=== PATIENT | female | born 1955 | race Caucasian/White ===

== ENCOUNTER 2023-09-24 13:04 | Inpatient (IN) ==
[2023-09-24] MEDS ORDERED: Lactated Ringers 1000 ml BAG 1,000 ML IV ONE (13:40)
[2023-09-24] MEDS ORDERED: Morphine 4 MG/ML VIAL (1 ml) IV ONE ×2 (13:40→19:41)
[2023-09-24] MEDS ORDERED: Ondansetron 4 mg VIAL 2 MG/ML 2 ml VIAL IV ONE (13:40)
[2023-09-24 14:26] LABS: ABS Lymphocytes 0.3 10^3/uL (1.0-4.8); ABS Monocytes 0.5 10^3/uL (0.0-0.9); Hemoglobin 8.8 g/dL (11.5-14.3); Lymphocyte % 2.6 %; Mean Corpuscular Hemoglobin 27.1 pg (27-33); Mean Corpuscular Hgb Conc 33.7 g/dL (31-36); Mean Corpuscular Volume 80.2 fL (80-97); Mean Platelet Volume 9.2 fL (7.5-11.2); Platelet Count 333 10^3/uL (150-450); Red Blood Count 3.24 10^6/uL (3.63-4.92); White Blood Count 12.8 10^3/uL (3.8-11.8)
[2023-09-24 14:52] LABS: ALT 16 U/L (7-52); AST 16 U/L (13-39); Albumin 2.9 g/dL (3.2-5.2); Albumin/Globulin Ratio 1.1 (1-3); Alkaline Phosphatase 154 U/L (35-149); Anion Gap 10 mmol/L (2-16); Blood Urea Nitrogen 27 mg/dL (6-24); CO2 Carbon Dioxide 25 mmol/L (22-32); Calcium 8.7 mg/dL (8.6-10.3); Chloride 95 mmol/L (101-111); Creatinine, Serum 1.05 mg/dL (0.51-0.95); Globulin 2.6 g/dL (2-4); Glucose 119 mg/dL (70-100); Lipase < 10 U/L (11.0-82.0); Potassium 4.4 mmol/L (3.5-5.0); Sodium 130 mmol/L (135-145); Total Bilirubin 0.8 mg/dL (0.2-1.0); Total Protein 5.5 g/dL (6.4-8.9)
[2023-09-24] MEDS ORDERED: Iodixanol (CONTRAST) 320 MG/ML 100 ML SDV IV ONE (15:21)
[2023-09-24 15:52] LABS: Urine Appearance Cloudy; Urine Bilirubin Negative (Negative); Urine Blood 1+ (Negative); Urine Color Amber; Urine Glucose Negative (Negative); Urine Ketones 1+ (Negative); Urine Nitrite Negative (Negative); Urine Protein 2+(100 mg/dL) (Negative); Urine Specific Gravity 1.026 (1.002-1.030); Urine Urobilinogen Positive (Negative)
[2023-09-24 16:23] LABS: Urine Bacteria Absent (Absent); Urine Granular Casts Present (Absent); Urine Red Blood Cell 1+(3-5/hpf) (Absent); Urine Squamous Epithelial Cell Present (Absent); Urine White Blood Cell 2+(11-20/hpf) (Absent)
[2023-09-24 20:27] LABS: C Reactive Protein 194.29 mg/L (<8.01)
[2023-09-24] MEDS ORDERED: Ondansetron 4 mg VIAL 2 MG/ML 2 ml VIAL IV PRN (23:37)
[2023-09-25] MEDS ORDERED: cefTRIAXone 2 gm/50 mL D5W 2 GM/50 ML BAG IV SCH (00:15)
[2023-09-25] MEDS: Enoxaparin 40 MG/0.4 ML SYR SUBCUT SCH ×2 (01:39→21:29)
[2023-09-25 02:30] LABS: Body Fluid Appearance Cloudy; Body Fluid Color Yellow; Body Fluid Source Peritonial Fluid
[2023-09-25 02:46] LABS: Body Fluid Total Nucleated 2066 /mcL
[2023-09-25] MEDS: Azithromycin 500 mg/250 ml NS 500 MG/250 ML BAG IVPB SCH (03:07)
[2023-09-25 05:26] LABS: Body Fluid Mono 31 %; Body Fluid Other Cells 18; Body Fluid Total Cells Counted 200
[2023-09-25 06:01] LABS: ABS Lymphocytes 0.5 10^3/uL (1.0-4.8); ABS Monocytes 0.5 10^3/uL (0.0-0.9); Eosinophil % 0.5 %; Hematocrit 23.3 % (35-45); Hemoglobin 7.9 g/dL (11.5-14.3); Lymphocyte % 6.2 %; Mean Corpuscular Hemoglobin 27.2 pg (27-33); Mean Corpuscular Volume 79.9 fL (80-97); Mean Platelet Volume 9.2 fL (7.5-11.2); Platelet Count 270 10^3/uL (150-450); Red Blood Count 2.92 10^6/uL (3.63-4.92); Red Cell Distribution Width 14.1 % (12-17); White Blood Count 8.1 10^3/uL (3.8-11.8)
[2023-09-25 06:19] LABS: Albumin 2.5 g/dL (3.2-5.2); Albumin/Globulin Ratio 1.1 (1-3); Creatinine, Serum 1.05 mg/dL (0.51-0.95); Globulin 2.3 g/dL (2-4); Magnesium 1.8 mg/dL (1.9-2.7); Potassium 4.1 mmol/L (3.5-5.0); Total Bilirubin 0.6 mg/dL (0.2-1.0); Total Protein 4.8 g/dL (6.4-8.9)
[2023-09-26] MEDS: cefTRIAXone 2 gm/50 mL D5W 2 GM/50 ML BAG IV SCH (01:07)
[2023-09-26] MEDS: Azithromycin 500 mg/250 ml NS 500 MG/250 ML BAG IVPB SCH (02:28)
[2023-09-26 05:27] LABS: Hematocrit 22.7 % (35-45); Hemoglobin 7.7 g/dL (11.5-14.3); Mean Corpuscular Hemoglobin 27.1 pg (27-33); Mean Corpuscular Hgb Conc 33.8 g/dL (31-36); Mean Platelet Volume 9.3 fL (7.5-11.2); Platelet Count 262 10^3/uL (150-450); Red Blood Count 2.83 10^6/uL (3.63-4.92); Red Cell Distribution Width 14.3 % (12-17); White Blood Count 6.6 10^3/uL (3.8-11.8)
[2023-09-26 05:49] LABS: Creatinine, Serum 1.07 mg/dL (0.51-0.95); Potassium 3.9 mmol/L (3.5-5.0); eGFR CKD-EPI 57.6 (>60)
[2023-09-26] MEDS ORDERED: PALONOSETRON HCL 0.05 MG/ML (0.25 MG) SYRINGE (0.05 MG/ML) IV ONE (08:45)
[2023-09-26] MEDS ORDERED: Dexamethasone IV 4 MG/ML VIAL 1 ml VIAL IV SLOW PU ONE (08:45)
[2023-09-26] MEDS ORDERED: APREPITANT 130 MG in Premix IV 0 ML IV ONE (08:45)
[2023-09-26] MEDS ORDERED: GEMCITABINE IVPB ONE (09:15)
[2023-09-26] MEDS ORDERED: NS 0.9% IVPB ONE ×2 (09:15→09:45)
[2023-09-26] MEDS ORDERED: CARBOPLATIN IVPB ONE (09:45)
[2023-09-26] MEDS: Enoxaparin 40 MG/0.4 ML SYR SUBCUT SCH (21:09)
[2023-09-27] MEDS: cefTRIAXone 2 gm/50 mL D5W 2 GM/50 ML BAG IV SCH (00:48)
[2023-09-27] MEDS: Azithromycin 500 mg/250 ml NS 500 MG/250 ML BAG IVPB SCH (01:30)
[2023-09-27 04:54] LABS: Creatinine, Serum 1.08 mg/dL (0.51-0.95); Potassium 4.1 mmol/L (3.5-5.0)
[2023-09-27 05:42] LABS: Hematocrit 21.4 % (35-45); Hemoglobin 7.3 g/dL (11.5-14.3); Mean Corpuscular Hgb Conc 34.1 g/dL (31-36); Mean Corpuscular Volume 79.1 fL (80-97); Mean Platelet Volume 10.3 fL (7.5-11.2); Platelet Count 268 10^3/uL (150-450); Red Blood Count 2.71 10^6/uL (3.63-4.92); Red Cell Distribution Width 14.2 % (12-17); White Blood Count 7.7 10^3/uL (3.8-11.8)
[2023-09-27 11:16] LABS: BF PH 7.6
[2023-09-27 11:17] LABS: Fluid Type, Protein, Total PERITONEAL FLUID; Glucose, BF 69 mg/dL; Total Protein, BF 4.1 g/dL
[2023-09-27] MEDS: Enoxaparin 40 MG/0.4 ML SYR SUBCUT SCH (21:42)
[2023-09-28] MEDS: cefTRIAXone 2 gm/50 mL D5W 2 GM/50 ML BAG IV SCH (01:40)
[2023-09-28 06:34] LABS: Calcium 8.2 mg/dL (8.6-10.3); Creatinine, Serum 1.04 mg/dL (0.51-0.95); Potassium 4.2 mmol/L (3.5-5.0); eGFR CKD-EPI 59.6 (>60)
[2023-09-28 07:15] LABS: Hematocrit 22.3 % (35-45); Hemoglobin 7.7 g/dL (11.5-14.3); Mean Corpuscular Hemoglobin 27.3 pg (27-33); Mean Corpuscular Hgb Conc 34.5 g/dL (31-36); Mean Corpuscular Volume 79.3 fL (80-97); Mean Platelet Volume 10.2 fL (7.5-11.2); Platelet Count 313 10^3/uL (150-450); Red Blood Count 2.81 10^6/uL (3.63-4.92); Red Cell Distribution Width 14.4 % (12-17); White Blood Count 6.3 10^3/uL (3.8-11.8)
[2023-09-28 14:35] VITALS: BP 112/74
== END 2023-09-28 16:01 | disposition home or self-care (01) | DRG 371 ==
LOC: ED 13:04 → EDHOLD 13:04 → SUATTDRO 23:37 → MED 09-25 13:02
PROVIDERS: ADMIT Internal Medicine; ATTEND Internal Medicine

== ENCOUNTER 2023-10-03 07:48 | Inpatient (IN) ==
[~2023-10-03 07:48] MED LIST: BEVACIZUMAB AWWB IVPB SCH; GEMCITABINE IVPB SCH; NS 0.9% IVPB SCH; [UNRECOGNIZED DRUG - OTHER] IVPB SCH
[2023-10-03 08:51] LABS: ABS Lymphocytes 0.3 10^3/uL (1.0-4.8); ABS Monocytes 0.1 10^3/uL (0.0-0.9); ABS Neutrophils 3.3 10^3/uL (1.5-7.6); Eosinophil % 0.1 %; Hematocrit 23.1 % (35-45); Hemoglobin 7.8 g/dL (11.5-14.3); Lymphocyte % 7.8 %; Mean Corpuscular Hemoglobin 26.8 pg (27-33); Mean Corpuscular Hgb Conc 33.8 g/dL (31-36); Mean Corpuscular Volume 79.2 fL (80-97); Mean Platelet Volume 9.3 fL (7.5-11.2); Nucleated Red Blood Cells % 0.1 %/100WBC (0.0-0.8); Platelet Count 197 10^3/uL (150-450); Red Blood Count 2.91 10^6/uL (3.63-4.92); Red Cell Distribution Width 14.5 % (12-17); White Blood Count 3.7 10^3/uL (3.8-11.8)
[2023-10-03 09:15] LABS: Albumin 2.9 g/dL (3.2-5.2); Albumin/Globulin Ratio 1.1 (1-3); Calcium 8.4 mg/dL (8.6-10.3); Creatinine, Serum 0.82 mg/dL (0.51-0.95); Globulin 2.7 g/dL (2-4); Magnesium 1.7 mg/dL (1.9-2.7); Potassium 3.3 mmol/L (3.5-5.0); Total Bilirubin 1.2 mg/dL (0.2-1.0); Total Protein 5.6 g/dL (6.4-8.9); eGFR CKD-EPI 79.3 (>60)
[2023-10-03] MEDS ORDERED: NS 0.9% w/ 20 Meq KCL 1000 ml 1,000 ML ONE (09:47)
[2023-10-03] MEDS ORDERED: Magnesium Sulfate 2 gm BAG 2 GM/50 ML BAG ONE (09:47)
[2023-10-03 10:11] LABS: C Reactive Protein 235.12 mg/L (<8.01)
[2023-10-03] MEDS ORDERED: Ondansetron 4 mg VIAL 2 MG/ML 2 ml VIAL ONE (10:59)
[2023-10-03 13:11] LABS: Erythrocyte Sed Rate > 120 mm/Hr (0-29)
[2023-10-03] MEDS: Enoxaparin 40 MG/0.4 ML SYR SUBCUT SCH (18:56)
[2023-10-04 06:35] LABS: ABS Lymphocytes 0.3 10^3/uL (1.0-4.8); ABS Monocytes 0.1 10^3/uL (0.0-0.9); ABS Neutrophils 1.3 10^3/uL (1.5-7.6); Eosinophil % 0.3 %; Hematocrit 19.7 % (35-45); Hemoglobin 6.7 g/dL (11.5-14.3); Lymphocyte % 17.4 %; Mean Corpuscular Hgb Conc 34.2 g/dL (31-36); Mean Corpuscular Volume 78.8 fL (80-97); Mean Platelet Volume 9.2 fL (7.5-11.2); Nucleated Red Blood Cells % 0.2 %/100WBC (0.0-0.8); Platelet Count 129 10^3/uL (150-450); Red Blood Count 2.49 10^6/uL (3.63-4.92); Red Cell Distribution Width 14.2 % (12-17); White Blood Count 1.7 10^3/uL (3.8-11.8)
[2023-10-04 06:51] LABS: Albumin 2.7 g/dL (3.2-5.2); Calcium 8.2 mg/dL (8.6-10.3); Creatinine, Serum 0.91 mg/dL (0.51-0.95); Globulin 2.6 g/dL (2-4); Magnesium 2.1 mg/dL (1.9-2.7); Potassium 3.5 mmol/L (3.5-5.0); Total Bilirubin 0.7 mg/dL (0.2-1.0); Total Protein 5.3 g/dL (6.4-8.9)
[2023-10-04] MEDS: Cholecalciferol (VIT D3) 1,000 unit TAB PO SCH (10:00)
[2023-10-04] MEDS: Nystatin SUSPENSION 100,000 UNITS/ML UDC PO SCH ×4 (10:01→20:29)
[2023-10-04] MEDS ORDERED: Alteplase (CATHFLO) 2 MG VIAL IV ONE (16:13)
[2023-10-04] MEDS: Enoxaparin 40 MG/0.4 ML SYR SUBCUT SCH (17:46)
[2023-10-04 23:58] LABS: Hematocrit 21.8 % (35-45); Hemoglobin 7.5 g/dL (11.5-14.3); Mean Corpuscular Hemoglobin 27.6 pg (27-33); Mean Corpuscular Hgb Conc 34.5 g/dL (31-36); Red Blood Count 2.72 10^6/uL (3.63-4.92); Red Cell Distribution Width 15.1 % (12-17); White Blood Count 1.3 10^3/uL (3.8-11.8)
[2023-10-05 00:41] LABS: Mean Platelet Volume 9.1 fL (7.5-11.2); Platelet Count 98 10^3/uL (150-450)
[2023-10-05 00:48] LABS: ABS Lymphocytes 0.3 10^3/uL (1.0-4.8); ABS Monocytes 0.1 10^3/uL (0.0-0.9); ABS Neutrophils 0.9 10^3/uL (1.5-7.6); Eosinophil % 0.3 %; Nucleated Red Blood Cells % 0.3 %/100WBC (0.0-0.8); RBC Morphology Normal (Normal)
[2023-10-05 06:12] LABS: Calcium 8.2 mg/dL (8.6-10.3); Creatinine, Serum 0.87 mg/dL (0.51-0.95); Potassium 2.9 mmol/L (3.5-5.0); eGFR CKD-EPI 73.9 (>60)
[2023-10-05 06:22] LABS: ABS Lymphocytes 0.4 10^3/uL (1.0-4.8); ABS Monocytes 0.1 10^3/uL (0.0-0.9); ABS Neutrophils 0.8 10^3/uL (1.5-7.6); Eosinophil % 0.5 %; Hematocrit 22.5 % (35-45); Hemoglobin 7.7 g/dL (11.5-14.3); Lymphocyte % 26.9 %; Mean Corpuscular Hemoglobin 27.2 pg (27-33); Mean Corpuscular Hgb Conc 34.1 g/dL (31-36); Mean Corpuscular Volume 79.7 fL (80-97); Mean Platelet Volume 9.2 fL (7.5-11.2); Nucleated Red Blood Cells % 0.2 %/100WBC (0.0-0.8); Platelet Count 94 10^3/uL (150-450); Red Blood Count 2.82 10^6/uL (3.63-4.92); Red Cell Distribution Width 15.3 % (12-17); White Blood Count 1.3 10^3/uL (3.8-11.8)
[2023-10-05] MEDS: Cholecalciferol (VIT D3) 1,000 unit TAB PO SCH (08:22)
[2023-10-05] MEDS: Potassium EFFERVES 25 meq TAB PO ONE ×2 (08:23→08:35)
[2023-10-05] MEDS: Nystatin SUSPENSION 100,000 UNITS/ML UDC PO SCH ×4 (08:25→20:38)
[2023-10-05] MEDS ORDERED: Potassium Chlor 20 meq TAB.ER PO ONE ×2 (08:41→13:00)
[2023-10-05] MEDS: KCL 20 MEQ/100 ML IVPREMIX 20 MEQ/100 ML BAG IV SCH ×2 (10:51→13:13)
[2023-10-05] MEDS ORDERED: Filgrastim* 480 MCG VIAL (AUTOSUB = ZARXIO*) SUBCUT ONE (11:59)
[2023-10-05] MEDS ORDERED: Potassium EFFERVES 25 meq TAB PO ONE (13:00)
[2023-10-05] MEDS: Lidocaine PATCH 5% PATCH TRANSDERM SCH (15:45)
[2023-10-05] MEDS ORDERED: KCL 20 MEQ/100 ML IVPREMIX 20 MEQ/100 ML BAG IV ONE (16:36)
[2023-10-05] MEDS: Enoxaparin 40 MG/0.4 ML SYR SUBCUT SCH (17:16)
[2023-10-06] MEDS: Cholecalciferol (VIT D3) 1,000 unit TAB PO SCH (09:08)
[2023-10-06] MEDS: Nystatin SUSPENSION 100,000 UNITS/ML UDC PO SCH ×4 (09:09→19:45)
[2023-10-06] MEDS: Lidocaine PATCH 5% PATCH TRANSDERM SCH ×2 (09:35→19:40)
[2023-10-06 09:49] LABS: Hematocrit 28.4 % (35-45); Hemoglobin 9.8 g/dL (11.5-14.3); Mean Corpuscular Hemoglobin 28.3 pg (27-33); Mean Corpuscular Hgb Conc 34.4 g/dL (31-36); Mean Corpuscular Volume 82.3 fL (80-97); Mean Platelet Volume 9.2 fL (7.5-11.2); Platelet Count 67 10^3/uL (150-450); Red Blood Count 3.46 10^6/uL (3.63-4.92); White Blood Count 1.9 10^3/uL (3.8-11.8)
[2023-10-06 09:52] LABS: Calcium 8.2 mg/dL (8.6-10.3); Creatinine, Serum 0.82 mg/dL (0.51-0.95); Magnesium 1.8 mg/dL (1.9-2.7); Potassium 3.4 mmol/L (3.5-5.0); eGFR CKD-EPI 79.3 (>60)
[2023-10-06 10:14] LABS: ABS Lymphocytes 0.4 10^3/uL (1.0-4.8); ABS Monocytes 0.2 10^3/uL (0.0-0.9); ABS Neutrophils 1.3 10^3/uL (1.5-7.6); ABS Nucleated RBC 0.01 10^3/ul; Eosinophil % 0.4 %; Lymphocyte % 19.2 %; Nucleated Red Blood Cells % 0.4 %/100WBC (0.0-0.8)
[2023-10-06] MEDS ORDERED: Magnesium Sulfate 2 gm BAG 2 GM/50 ML BAG IVPB ONE (10:46)
[2023-10-06] MEDS ORDERED: Potassium Chlor 20 meq TAB.ER PO ONE (10:46)
[2023-10-06 14:07] LABS: Urine Appearance Cloudy; Urine Bilirubin Negative (Negative); Urine Blood 2+ (Negative); Urine Color Amber; Urine Glucose Negative (Negative); Urine Ketones Negative (Negative); Urine Nitrite Negative (Negative); Urine Protein 2+(100 mg/dL) (Negative); Urine Specific Gravity 1.027 (1.002-1.030); Urine Urobilinogen Negative (Negative)
[2023-10-06 14:36] LABS: Urine Bacteria Absent (Absent); Urine Red Blood Cell 3+(>10/hpf) (Absent); Urine Squamous Epithelial Cell Present (Absent); Urine White Blood Cell 2+(11-20/hpf) (Absent)
[2023-10-06] MEDS: Enoxaparin 40 MG/0.4 ML SYR SUBCUT SCH (17:07)
[2023-10-07] MEDS: Nystatin SUSPENSION 100,000 UNITS/ML UDC PO SCH ×4 (07:37→21:59)
[2023-10-07 07:40] LABS: Hematocrit 26.7 % (35-45); Mean Corpuscular Hemoglobin 28.3 pg (27-33); Mean Corpuscular Hgb Conc 33.9 g/dL (31-36); Mean Corpuscular Volume 83.5 fL (80-97); Mean Platelet Volume 9.6 fL (7.5-11.2); Platelet Count 47 10^3/uL (150-450); Red Blood Count 3.19 10^6/uL (3.63-4.92); Red Cell Distribution Width 17.6 % (12-17); White Blood Count 3.3 10^3/uL (3.8-11.8)
[2023-10-07 07:48] LABS: Calcium 7.8 mg/dL (8.6-10.3); Creatinine, Serum 0.78 mg/dL (0.51-0.95); Magnesium 1.9 mg/dL (1.9-2.7); Potassium 3.6 mmol/L (3.5-5.0); eGFR CKD-EPI 84.2 (>60)
[2023-10-07 08:05] LABS: ABS Lymphocytes 0.4 10^3/uL (1.0-4.8); ABS Monocytes 0.3 10^3/uL (0.0-0.9); ABS Neutrophils 2.5 10^3/uL (1.5-7.6); Eosinophil % 0.2 %; Lymphocyte % 13.5 %
[2023-10-07] MEDS: Cholecalciferol (VIT D3) 1,000 unit TAB PO SCH (11:27)
[2023-10-07] MEDS: Scopolamine 1 mg/72hr PATCH TRANSDERM SCH (11:28)
[2023-10-07] MEDS: Lidocaine PATCH 5% PATCH TRANSDERM SCH (21:58)
[2023-10-08 06:12] LABS: Creatinine, Serum 0.77 mg/dL (0.51-0.95); Magnesium 1.7 mg/dL (1.9-2.7); Potassium 3.7 mmol/L (3.5-5.0); eGFR CKD-EPI 85.6 (>60)
[2023-10-08 07:04] LABS: Hematocrit 26.1 % (35-45); Hemoglobin 8.9 g/dL (11.5-14.3); Mean Corpuscular Hemoglobin 28.2 pg (27-33); Mean Corpuscular Volume 83.2 fL (80-97); Mean Platelet Volume 10.8 fL (7.5-11.2); Platelet Count 45 10^3/uL (150-450); Red Blood Count 3.14 10^6/uL (3.63-4.92); Red Cell Distribution Width 17.4 % (12-17); White Blood Count 4.3 10^3/uL (3.8-11.8)
[2023-10-08 07:29] LABS: ABS Lymphocytes 0.6 10^3/uL (1.0-4.8); ABS Monocytes 0.4 10^3/uL (0.0-0.9); ABS Neutrophils 3.4 10^3/uL (1.5-7.6); Eosinophil % 0.1 %; Lymphocyte % 13.6 %; Nucleated Red Blood Cells % 0.1 %/100WBC (0.0-0.8)
[2023-10-08] MEDS: Cholecalciferol (VIT D3) 1,000 unit TAB PO SCH (08:14)
[2023-10-08] MEDS ORDERED: Magnesium Sulfate 2 gm BAG 2 GM/50 ML BAG IVPB ONE (17:32)
[2023-10-08] MEDS ORDERED: Magnesium Sulfate IV 1GM/100ML 1 GM/100 ML BAG IV ONE (19:32)
[2023-10-08] MEDS: Lidocaine PATCH 5% PATCH TRANSDERM SCH (20:07)
[2023-10-09 06:58] LABS: Hemoglobin 8.9 g/dL (11.5-14.3); Mean Corpuscular Hemoglobin 28.3 pg (27-33); Mean Corpuscular Hgb Conc 34.1 g/dL (31-36); Mean Corpuscular Volume 82.8 fL (80-97); Mean Platelet Volume 10.6 fL (7.5-11.2); Platelet Count 43 10^3/uL (150-450); Red Blood Count 3.14 10^6/uL (3.63-4.92); Red Cell Distribution Width 18.2 % (12-17); White Blood Count 3.4 10^3/uL (3.8-11.8)
[2023-10-09 07:17] LABS: Calcium 7.9 mg/dL (8.6-10.3); Creatinine, Serum 0.76 mg/dL (0.51-0.95); Magnesium 2.1 mg/dL (1.9-2.7); Potassium 3.5 mmol/L (3.5-5.0); eGFR CKD-EPI 86.9 (>60)
[2023-10-09 07:35] LABS: ABS Lymphocytes 0.5 10^3/uL (1.0-4.8); ABS Monocytes 0.3 10^3/uL (0.0-0.9); ABS Neutrophils 2.6 10^3/uL (1.5-7.6); Eosinophil % 0.2 %; Lymphocyte % 13.6 %; Nucleated Red Blood Cells % 0.1 %/100WBC (0.0-0.8); RBC Morphology Normal (Normal)
[2023-10-09] MEDS: Cholecalciferol (VIT D3) 1,000 unit TAB PO SCH (09:37)
[2023-10-09] MEDS ORDERED: Alteplase (CATHFLO) 2 MG VIAL IV ONE (18:33)
[2023-10-09] MEDS: Lidocaine PATCH 5% PATCH TRANSDERM SCH (20:56)
[2023-10-10] MEDS: Cholecalciferol (VIT D3) 1,000 unit TAB PO SCH (08:57)
[2023-10-10] MEDS: Scopolamine 1 mg/72hr PATCH TRANSDERM SCH (08:58)
[2023-10-10 14:24] VITALS: BP 108/74
== END 2023-10-10 15:05 | disposition home or self-care (01) | DRG 754 ==
LOC: CHOA 07:48 → MEDTELE 14:28 → MED 10-07 10:38
PROVIDERS: ADMIT Internal Medicine Medical Oncology; ATTEND Student in an Organized Health Care Education/Training Program

== ENCOUNTER 2024-07-15 12:44 | Inpatient (IN) ==
[2024-07-15] MEDS: Lactated Ringers 1000 ml BAG 1,000 ML IV ONE ×2 (13:50→17:43)
[2024-07-15 13:59] LABS: ABS Lymphocytes 0.3 10^3/uL (1.0-4.8); ABS Monocytes 0.4 10^3/uL (0.0-0.9); ABS Neutrophils 2.4 10^3/uL (1.5-7.6); ABS Nucleated RBC 0.01 10^3/ul; Eosinophil % 0.1 %; Hematocrit 34.4 % (35-45); Hemoglobin 11.2 g/dL (11.5-14.3); Mean Corpuscular Hgb Conc 32.7 g/dL (31-36); Mean Corpuscular Volume 91.7 fL (80-97); Nucleated Red Blood Cells % 0.2 %/100WBC (0.0-0.8); Red Blood Count 3.76 10^6/uL (3.63-4.92); Red Cell Distribution Width 18.6 % (12-17); White Blood Count 3.1 10^3/uL (3.8-11.8)
[2024-07-15 14:47] LABS: Albumin 3.2 g/dL (3.2-5.2); Albumin/Globulin Ratio 1.7 (1-3); Calcium 9.3 mg/dL (8.6-10.3); Creatinine, Serum 0.84 mg/dL (0.51-0.95); Globulin 1.9 g/dL (2-4); Magnesium 1.5 mg/dL (1.9-2.7); Potassium 3.2 mmol/L (3.5-5.0); Total Protein 5.1 g/dL (6.4-8.9); eGFR CKD-EPI 76.6 (>60)
[2024-07-15 14:55] LABS: TSH Ultra Thyroid Stim Horm 0.03 mcIU/mL (0.34-5.60)
[2024-07-15 15:00] LABS: Free T4 4.95 ng/dL (0.61-1.12)
[2024-07-15 15:10] LABS: Anisocytosis 1+; Mean Platelet Volume 10.5 fL (7.5-11.2); Platelet Count 52 10^3/uL (150-450)
[2024-07-15] MEDS: Iohexol 300 (CONTRAST) 10 ML SDV IV ONE (15:20)
[2024-07-15 16:30] LABS: Urine Appearance Clear; Urine Bilirubin Negative (Negative); Urine Blood 1+ (Negative); Urine Color Yellow; Urine Glucose Negative (Negative); Urine Ketones 1+ (Negative); Urine Nitrite Negative (Negative); Urine Protein 1+ (>=30 mg/dL) (Negative); Urine Urobilinogen Negative (Negative); Urine pH 5.5 (5.0-8.0)
[2024-07-15 16:31] LABS: Urine Bacteria Absent /HPF (Absent); Urine Red Blood Cell 1+(3-5/hpf) /HPF (0-Trace); Urine Squamous Epithelial Cell Present /HPF (Absent); Urine White Blood Cell 3+(>20/hpf) /HPF (0-Trace)
[2024-07-15] MEDS: Magnesium Sulfate 2 gm BAG 2 GM/50 ML BAG IVPB ONE ×2 (16:55→19:48)
[2024-07-15] MEDS: Potassium Chlor 20 meq TAB.ER PO ONE (16:55)
[2024-07-15] MEDS ORDERED: Ondansetron 4 mg VIAL 2 MG/ML 2 ml VIAL IV PRN (20:29)
[2024-07-15 20:50] LABS: Immature Retic Fraction 0.62
[2024-07-15 20:58] LABS: Corrected Retic Count 2.4 % (0.5-2.2); Hematocrit for Retic CNT 34.5 % (35-45); RBC Retic Count 3.73 10^6/ul (3.63-4.92)
[2024-07-15 21:01] LABS: C Reactive Protein 24.75 mg/L (<8.01); Direct Bilirubin 0.6 mg/dL (0.03-0.18); Indirect Bilirubin 1.4 mg/dL (0.3-1.0)
[2024-07-15] MEDS: cefTRIAXone 1 gm/50 mL D5W 1 GM/50 ML BAG IV SCH (21:21)
[2024-07-16 05:59] LABS: Albumin 2.9 g/dL (3.2-5.2); Albumin/Globulin Ratio 1.7 (1-3); Calcium 8.9 mg/dL (8.6-10.3); Creatinine, Serum 0.78 mg/dL (0.51-0.95); Globulin 1.7 g/dL (2-4); Magnesium 2.3 mg/dL (1.9-2.7); Potassium 3.5 mmol/L (3.5-5.0); Total Protein 4.6 g/dL (6.4-8.9); eGFR CKD-EPI 83.7 (>60)
[2024-07-16 06:10] LABS: ABS Lymphocytes 0.5 10^3/uL (1.0-4.8); ABS Monocytes 0.4 10^3/uL (0.0-0.9); ABS Neutrophils 1.7 10^3/uL (1.5-7.6); ABS Nucleated RBC 0.01 10^3/ul; Eosinophil % 0.3 %; Hematocrit 30.6 % (35-45); Lymphocyte % 20.4 %; Mean Corpuscular Hgb Conc 32.6 g/dL (31-36); Mean Corpuscular Volume 91.8 fL (80-97); Mean Platelet Volume 9.3 fL (7.5-11.2); Nucleated Red Blood Cells % 0.2 %/100WBC (0.0-0.8); Platelet Count 41 10^3/uL (150-450); Red Blood Count 3.34 10^6/uL (3.63-4.92); Red Cell Distribution Width 18.9 % (12-17); White Blood Count 2.7 10^3/uL (3.8-11.8)
[2024-07-16] MEDS: KCL 20 MEQ/100 ML IVPREMIX 20 MEQ/100 ML BAG IV SCH (08:38)
[2024-07-17 05:10] LABS: Hematocrit 29.7 % (35-45); Hemoglobin 9.7 g/dL (11.5-14.3); Mean Corpuscular Hgb Conc 32.7 g/dL (31-36); Mean Corpuscular Volume 91.6 fL (80-97); Mean Platelet Volume 9.3 fL (7.5-11.2); Platelet Count 38 10^3/uL (150-450); Red Blood Count 3.25 10^6/uL (3.63-4.92); White Blood Count 2.4 10^3/uL (3.8-11.8)
[2024-07-17 05:45] LABS: Albumin 2.8 g/dL (3.2-5.2); Albumin/Globulin Ratio 1.8 (1-3); Calcium 8.9 mg/dL (8.6-10.3); Creatinine, Serum 0.57 mg/dL (0.51-0.95); Globulin 1.6 g/dL (2-4); Magnesium 1.6 mg/dL (1.9-2.7); Potassium 3.5 mmol/L (3.5-5.0); Total Bilirubin 0.8 mg/dL (0.2-1.0); Total Protein 4.4 g/dL (6.4-8.9); eGFR CKD-EPI 100.2 (>60)
[2024-07-17] MEDS: Potassium Chlor 20 meq TAB.ER PO ONE (08:33)
[2024-07-17] MEDS: Magnesium Sulf 4 GM/100 ML IV 4,000 MG/100 ML BAG IVPB ONE (08:34)
[2024-07-17 10:49] LABS: ABS Lymphocytes 0.4 10^3/uL (1.0-4.8); ABS Monocytes 0.3 10^3/uL (0.0-0.9); ABS Neutrophils 1.7 10^3/uL (1.5-7.6); Eosinophil % 0.7 %; Lymphocyte % 16.8 %
[2024-07-17] MEDS: Lactated Ringers 1000 ml BAG 1,000 ML IV SCH (17:40)
[2024-07-18 05:09] LABS: Hematocrit 29.6 % (35-45); Hemoglobin 9.8 g/dL (11.5-14.3); Mean Corpuscular Hemoglobin 30.6 pg (27-33); Mean Corpuscular Hgb Conc 33.3 g/dL (31-36); Mean Corpuscular Volume 91.9 fL (80-97); Red Blood Count 3.22 10^6/uL (3.63-4.92); Red Cell Distribution Width 19.5 % (12-17); White Blood Count 3.8 10^3/uL (3.8-11.8)
[2024-07-18 05:10] LABS: ABS Lymphocytes 0.3 10^3/uL (1.0-4.8); ABS Monocytes 0.4 10^3/uL (0.0-0.9); ABS Neutrophils 3.2 10^3/uL (1.5-7.6); ABS Nucleated RBC 0.01 10^3/ul; Eosinophil % 0.1 %; Lymphocyte % 8.5 %; Nucleated Red Blood Cells % 0.2 %/100WBC (0.0-0.8); Platelet Count 36 10^3/uL (150-450)
[2024-07-18 05:53] LABS: Albumin 2.8 g/dL (3.2-5.2); Albumin/Globulin Ratio 1.8 (1-3); Calcium 8.4 mg/dL (8.6-10.3); Creatinine, Serum 0.6 mg/dL (0.51-0.95); Globulin 1.6 g/dL (2-4); Magnesium 1.9 mg/dL (1.9-2.7); Potassium 3.7 mmol/L (3.5-5.0); Total Bilirubin 0.8 mg/dL (0.2-1.0); Total Protein 4.4 g/dL (6.4-8.9); eGFR CKD-EPI 98.9 (>60)
[2024-07-18 12:25] LABS: Phosphorus 2.8 mg/dL (2.5-5.0)
[2024-07-18] MEDS: D5LR 1000 ml BAG 1,000 ML IV SCH (14:56)
[2024-07-19 06:24] LABS: ABS Lymphocytes 0.4 10^3/uL (1.0-4.8); ABS Monocytes 0.3 10^3/uL (0.0-0.9); ABS Neutrophils 1.3 10^3/uL (1.5-7.6); Eosinophil % 0.6 %; Hematocrit 25.7 % (35-45); Hemoglobin 8.6 g/dL (11.5-14.3); Lymphocyte % 20.3 %; Mean Corpuscular Hemoglobin 30.4 pg (27-33); Mean Corpuscular Hgb Conc 33.5 g/dL (31-36); Mean Platelet Volume 9.5 fL (7.5-11.2); Nucleated Red Blood Cells % 0.2 %/100WBC (0.0-0.8); Platelet Count 30 10^3/uL (150-450); Red Blood Count 2.82 10^6/uL (3.63-4.92); Red Cell Distribution Width 18.9 % (12-17); White Blood Count 2.1 10^3/uL (3.8-11.8)
[2024-07-19 06:28] LABS: Activated Partial Thrombo Time 32.9 seconds (26.0-38.0); INR 1.23 (0.85-1.14)
[2024-07-19 06:40] LABS: Calcium 8.1 mg/dL (8.6-10.3); Creatinine, Serum 0.56 mg/dL (0.51-0.95); Potassium 3.1 mmol/L (3.5-5.0); eGFR CKD-EPI 100.6 (>60)
[2024-07-19 08:33] LABS: Magnesium 1.5 mg/dL (1.9-2.7); Phosphorus 2.8 mg/dL (2.5-5.0)
[2024-07-19] MEDS ORDERED: KCL 20 MEQ/100 ML IVPREMIX 20 MEQ/100 ML BAG IV SCH (09:00)
[2024-07-19] MEDS: Magnesium Sulfate IV 1GM/100ML 1 GM/100 ML BAG IV ONE (09:52)
[2024-07-19] MEDS: Magnesium Sulfate 2 gm BAG 2 GM/50 ML BAG IVPB ONE (10:35)
[2024-07-19] MEDS: KCL premix 10 MEQ/50 ML x 4 RUNS IV SCH (12:00)
[2024-07-19 12:37] LABS: Folate 4.04 ng/mL (5.90-24.80)
[2024-07-20 07:36] LABS: ABS Lymphocytes 0.4 10^3/uL (1.0-4.8); ABS Monocytes 0.3 10^3/uL (0.0-0.9); ABS Neutrophils 1.3 10^3/uL (1.5-7.6); Eosinophil % 1.1 %; Hematocrit 24.7 % (35-45); Hemoglobin 8.3 g/dL (11.5-14.3); Lymphocyte % 21.6 %; Mean Corpuscular Hemoglobin 30.2 pg (27-33); Mean Corpuscular Hgb Conc 33.7 g/dL (31-36); Mean Corpuscular Volume 89.6 fL (80-97); Mean Platelet Volume 9.8 fL (7.5-11.2); Nucleated Red Blood Cells % 0.1 %/100WBC (0.0-0.8); Platelet Count 34 10^3/uL (150-450); Red Blood Count 2.75 10^6/uL (3.63-4.92); Red Cell Distribution Width 18.5 % (12-17)
[2024-07-20 07:39] LABS: Albumin 2.5 g/dL (3.2-5.2); Albumin/Globulin Ratio 1.8 (1-3); Calcium 8.1 mg/dL (8.6-10.3); Creatinine, Serum 0.57 mg/dL (0.51-0.95); Globulin 1.4 g/dL (2-4); Magnesium 1.7 mg/dL (1.9-2.7); Potassium 3.4 mmol/L (3.5-5.0); Total Bilirubin 0.7 mg/dL (0.2-1.0); Total Protein 3.9 g/dL (6.4-8.9); eGFR CKD-EPI 100.2 (>60)
[2024-07-20] MEDS: Potassium Chlor 20 meq TAB.ER PO ONE (09:10)
[2024-07-20] MEDS: Magnesium Sulf 4 GM/100 ML IV 4,000 MG/100 ML BAG IVPB ONE (10:07)
[2024-07-21 07:29] LABS: Hematocrit 24.2 % (35-45); Hemoglobin 8.2 g/dL (11.5-14.3); Mean Corpuscular Hemoglobin 30.5 pg (27-33); Mean Corpuscular Hgb Conc 33.8 g/dL (31-36); Mean Corpuscular Volume 90.1 fL (80-97); Red Blood Count 2.68 10^6/uL (3.63-4.92); Red Cell Distribution Width 19.1 % (12-17); White Blood Count 1.8 10^3/uL (3.8-11.8)
[2024-07-21 07:49] LABS: ABS Lymphocytes 0.4 10^3/uL (1.0-4.8); ABS Monocytes 0.3 10^3/uL (0.0-0.9); ABS Neutrophils 1.1 10^3/uL (1.5-7.6); Eosinophil % 1.4 %; Lymphocyte % 22.2 %; Mean Platelet Volume 10.1 fL (7.5-11.2); Platelet Count 39 10^3/uL (150-450)
[2024-07-21 08:12] LABS: Calcium 8.1 mg/dL (8.6-10.3); Creatinine, Serum 0.68 mg/dL (0.51-0.95); Magnesium 2.2 mg/dL (1.9-2.7); Potassium 3.5 mmol/L (3.5-5.0)
[2024-07-21] MEDS: Potassium Chlor 20 meq TAB.ER PO ONE (12:30)
[2024-07-21] MEDS: Gadoteridol (CONTRAST) 279.3 MG/ML 10 ML IV ONE (21:55)
[2024-07-22 07:06] LABS: Calcium 8.4 mg/dL (8.6-10.3); Creatinine, Serum 0.69 mg/dL (0.51-0.95); Magnesium 1.9 mg/dL (1.9-2.7); Potassium 4.1 mmol/L (3.5-5.0); eGFR CKD-EPI 95.7 (>60)
[2024-07-22 07:18] LABS: ABS Lymphocytes 0.4 10^3/uL (1.0-4.8); ABS Monocytes 0.3 10^3/uL (0.0-0.9); Eosinophil % 1.2 %; Hematocrit 23.2 % (35-45); Hemoglobin 7.5 g/dL (11.5-14.3); Lymphocyte % 23.6 %; Mean Corpuscular Hemoglobin 29.5 pg (27-33); Mean Corpuscular Hgb Conc 32.5 g/dL (31-36); Mean Corpuscular Volume 90.7 fL (80-97); Mean Platelet Volume 10.2 fL (7.5-11.2); Platelet Count 47 10^3/uL (150-450); Red Blood Count 2.55 10^6/uL (3.63-4.92); Red Cell Distribution Width 19.4 % (12-17); White Blood Count 1.7 10^3/uL (3.8-11.8)
[2024-07-23 10:56] LABS: ABS Lymphocytes 0.5 10^3/uL (1.0-4.8); ABS Monocytes 0.5 10^3/uL (0.0-0.9); ABS Neutrophils 2.3 10^3/uL (1.5-7.6); Hemoglobin 9.1 g/dL (11.5-14.3); Lymphocyte % 15.6 %; Mean Corpuscular Hemoglobin 28.9 pg (27-33); Mean Corpuscular Hgb Conc 32.6 g/dL (31-36); Mean Corpuscular Volume 88.5 fL (80-97); Mean Platelet Volume 10.2 fL (7.5-11.2); Platelet Count 59 10^3/uL (150-450); Red Blood Count 3.16 10^6/uL (3.63-4.92); Red Cell Distribution Width 20.5 % (12-17); White Blood Count 3.4 10^3/uL (3.8-11.8)
[2024-07-23 11:23] LABS: Calcium 8.6 mg/dL (8.6-10.3); Creatinine, Serum 0.72 mg/dL (0.51-0.95); Magnesium 1.5 mg/dL (1.9-2.7); eGFR CKD-EPI 92.2 (>60)
[2024-07-23 14:25] VITALS: BP 124/79
[2024-07-23 14:32] LABS: Anaplasma phagocytophilum Negative (Negative); B. miyamotoi PCR, B Negative (Negative); Babesia divergens/MO-1 Negative (Negative); Babesia ducani Negative (Negative); Ehrlichia chaffeensis Negative (Negative); Ehrlichia ewingii/canis Negative (Negative); Ehrlichia muris eauclairensis Negative (Negative)
== END 2024-07-23 15:30 | disposition home or self-care (01) | DRG 871 ==
LOC: ED 12:44 → EDHOLD 12:44 → SUATTDRO 19:16 → OBSVTOIN 19:16 → MEDTELE 21:26
PROVIDERS: ADMIT Internal Medicine; ATTEND Hospitalist